=== PATIENT | female | born 1980 | race Caucasian/White ===

== ENCOUNTER 2020-09-18 20:46 | Inpatient (IN) ==
[~2020-09-18 20:46] MED LIST: *HR* Nalbuphine 10 MG/ML AMPUL IV PRN; Azithromycin 500 MG in 0.9 % Sodium Chloride 250 ML IVPB ONE; Famotidine 20 MG/2 ML VIAL IVP PRN; Metoclopramide 10 MG/2 ML VIAL IVP PRN; Naloxone 0.4 MG/ML INJ IVP PRN; Ondansetron 4 MG/2 ML VIAL IVP PRN
[2020-09-18] MEDS ORDERED: Ringers Solution, Lactated 1,000 ML IVC SCH (21:00)
[2020-09-18 21:02] LABS: Basophils % 0.2 %; Eosinophils % 0.2 %; Hematocrit 36.2 % (35.3-44.9); Hemoglobin 11.6 g/dL (11.5-15.4); Immature Granulocytes % 0.5 % (0-4); Lymphocytes # 0.9 K/mcL (0.6-4.6); Lymphocytes % 7.2 %; Mean Corpuscular Hemoglobin 31.7 pg (28.0-33.3); Mean Corpuscular Volume 98.9 fL (83.0-100.0); Mean Platelet Volume 9.9 fL (9.4-12.4); Monocytes # 0.7 K/mcL (0.0-1.3); Monocytes % 5.4 %; Neutrophils # 10.5 K/mcL (1.6-8.9); Platelet Count 110 K/mcL (140-400); Red Blood Count 3.66 M/mcL (3.82-4.97); Red Cell Distribution Width 14.4 % (11.5-14.5); Segmented Neutrophils % 86.5 %; White Blood Count 12.1 K/mcL (4.3-11.1)
[2020-09-18] MEDS ORDERED: Ropivacaine/PF 0.2% 20 ML VIAL ONE (22:00)
[2020-09-18] MEDS ORDERED: *HR* FentaNYL (PF) 100 MCG/2 ML VIAL ONE (22:00)
[2020-09-18] MEDS ORDERED: Epidural Premix (fent/bupiv) 110 ML EP ONE (22:01)
[2020-09-18] MEDS ORDERED: EPHEDrine 50 MG/ML VIAL IVP PRN (23:09)
[2020-09-18] MEDS ORDERED: Ropivacaine/PF 0.2% 20 ML VIAL EP ONE (23:09)
[2020-09-18] MEDS ORDERED: *HR* FentaNYL (PF) 100 MCG/2 ML VIAL EP ONE (23:09)
[2020-09-18] MEDS ORDERED: Epidural Premix (fent/bupiv) 110 ML EP SCH (23:15)
[2020-09-19] MEDS ORDERED: Famotidine 20 MG/2 ML VIAL ONE (05:21)
[2020-09-19] MEDS ORDERED: Lidocaine/EPI 1:200k 2% PF 20 ML VIAL ONE (05:27)
[2020-09-19] MEDS ORDERED: Oxytocin 20 units/ LR 1000 mL 20 UNIT/1,000 ML BAG IVC ONE ×3 (05:36→08:28)
[2020-09-19] MEDS ORDERED: Ondansetron 4 MG/2 ML VIAL ONE (05:39)
[2020-09-19] MEDS ORDERED: Ringers Solution, Lactated 1,000 ML ONE (05:39)
[2020-09-19] MEDS ORDERED: Acetaminophen IV 1,000 MG/100 ML BAG IVPB ONE (05:40)
[2020-09-19] MEDS ORDERED: *HR* Morphine Sulfate/PF 10 MG/10 ML AMPUL ONE (05:40)
[2020-09-19] MEDS ORDERED: Ketorolac 30 MG/ML VIAL ONE (05:53)
[2020-09-19] MEDS ORDERED: *HR* HYDROmorphone PF 0.5 MG/0.5 ML SYRINGE IVP PRN (05:57)
[2020-09-19] MEDS ORDERED: *HR* OxyCODONE Immed Rel 5 MG TABLET PO PRN (05:57)
[2020-09-19] MEDS ORDERED: Ondansetron 4 MG/2 ML VIAL IVP PRN ×2 (05:57→09:16)
[2020-09-19] MEDS ORDERED: Rho Immune Globulin 1,500 UNIT SYRINGE IM ONE (09:16)
[2020-09-19] MEDS ORDERED: Simethicone 80 MG TAB.CHEW PO PRN (09:16)
[2020-09-19] MEDS ORDERED: Sennosides 8.6 MG TABLET PO PRN (09:16)
[2020-09-19] MEDS ORDERED: Metoclopramide 10 MG/2 ML VIAL IVP PRN (09:16)
[2020-09-19] MEDS ORDERED: Ringers Solution, Lactated 1,000 ML IVC SCH (09:16)
[2020-09-19] MEDS ORDERED: Oxytocin 20 units/ LR 1000 mL 20 UNIT/1,000 ML BAG IVC SCH (09:16)
[2020-09-19] MEDS: Ibuprofen 600 MG TABLET PO SCH ×3 (13:29→22:47)
[2020-09-19] MEDS: Acetaminophen 325 MG TABLET PO SCH ×3 (13:30→22:47)
[2020-09-19] MEDS: *HR* OxyCODONE Immed Rel 5 MG TABLET PO PRN (19:30)
[2020-09-20] MEDS: *HR* OxyCODONE Immed Rel 5 MG TABLET PO PRN ×3 (02:54→19:51)
[2020-09-20] MEDS: Ibuprofen 600 MG TABLET PO SCH ×3 (04:34→17:43)
[2020-09-20] MEDS: Acetaminophen 325 MG TABLET PO SCH ×3 (04:43→17:43)
[2020-09-20 05:09] LABS: Basophils % 0.2 %; Eosinophils % 0.5 %; Red Cell Distribution Width 14.6 % (11.5-14.5)
[2020-09-20 05:11] LABS: Eosinophils # 0.1 K/mcL (0.0-0.6); Hematocrit 26.9 % (35.3-44.9); Hemoglobin 8.4 g/dL (11.5-15.4); Immature Granulocytes % 0.4 % (0-4); Immature Platelets 5.8 % (1.1-6.1); Lymphocytes # 1.3 K/mcL (0.6-4.6); Lymphocytes % 9.7 %; Mean Corpuscular HGB Conc 31.2 g/dL (31.6-35.5); Mean Corpuscular Hemoglobin 31.5 pg (28.0-33.3); Mean Corpuscular Volume 100.7 fL (83.0-100.0); Monocytes # 0.9 K/mcL (0.0-1.3); Monocytes % 6.9 %; Neutrophils # 10.9 K/mcL (1.6-8.9); Red Blood Count 2.67 M/mcL (3.82-4.97); Segmented Neutrophils % 82.3 %; White Blood Count 13.2 K/mcL (4.3-11.1)
[2020-09-20 05:12] LABS: Platelet Count 98 K/mcL (140-400)
[2020-09-20] MEDS: Prenatal Vit/FA 1 EACH TABLET PO SCH (08:03)
[2020-09-21] MEDS: Acetaminophen 325 MG TABLET PO SCH ×2 (00:28→07:49)
[2020-09-21] MEDS: Ibuprofen 600 MG TABLET PO SCH ×2 (00:28→07:48)
[2020-09-21] MEDS: Prenatal Vit/FA 1 EACH TABLET PO SCH (07:48)
[2020-09-21 08:29] VITALS: BP 131/77
== END 2020-09-21 12:45 | disposition home or self-care (01) | DRG 785 ==
LOC: 1NENULAB → 1NENUOBS 09-19 08:32
PROVIDERS: ADMIT Student in an Organized Health Care Education/Training Program; ATTEND Student in an Organized Health Care Education/Training Program